=== PATIENT | female | born 1950 | race Caucasian/White ===

== ENCOUNTER 2017-04-10 08:27 | Emergency (ER) | payer MEDICARE ==
[2017-04-10] MEDS ORDERED: HYDROcodone/ACETAMIN 5-325 MG* 1 TAB PO ONE (09:19)
[2017-04-10 10:46] VITALS: BP 156/83
--- NOTE | 2017-04-10 11:06 | RAD ---
Indication: LEFT proximal humerus pain post fall. Comparison: February 16, 2017 DEXA scan. Technique: AP and lateral views LEFT radius and ulna. AP and lateral views LEFT humerus. Report: Transverse fracture at the surgical neck of the humerus with 2 bone widths medial and 1 bone width anterior displacement. The humeral head remains located at the glenoid fossa. No additional fracture of the humerus, radius, or ulna evident. Unremarkable articular alignment at the elbow and wrist. Negative for fat pad displacement at the elbow to indicate joint effusion. Soft tissue swelling most prominent at the axilla. IMPRESSION: 1. Displaced surgical neck fracture of the humerus. Predisposing decreased bone density with February 16, 2017 DEXA scan documenting osteoporosis. 2. Negative for fracture of the radius or ulna.
--- NOTE | 2017-04-10 16:22 | ED ---
Upper Extremity Pain - HPI Summary HPI Summary: Patient presents to the ED with chief complaint of left arm pain after falling on the ice this morning. She endorses 9 out of 10 pain to the left upper arm. She was able to call an ambulance, but has not been able to move about the shoulder or elbow joint. Denies numbness, tingling, color or temperature changes. Neurovascularly intact. Patient is a smoker. Diffuse osteopenia DEXA scan completed in 2017. She takes opioids for chronic back pain but has not taken any prior to arrival. She denies hitting her head or loss of consciousness. Denies any other injuries on this date. Patient is ambulating well. She is right-handed. Last PO intake was last evening. - History of Current Complaint Chief Complaint: EDExtremityUpper Stated Complaint: FALL,LT SHOULDER PAIN Time Seen by Provider: 04/10/17 08:40 Hx Obtained From: Patient Mechanism Of Injury: Blunt Trauma Onset/Duration: Started Hours Ago Timing: Constant Severity Initially: Moderate Severity Currently: Moderate Character: Aching Alleviating Factor(s): Rest, Ice Associated Signs & Symptoms: Positive: Swelling Related History: Dominant Hand Right - Risk Factors Non-Orthopedic Risk Factor: Negative DVT Risk Factors: Negative Septic Arthritis Risk Factor: Negative Compartment Syndrome Risk Factors: Pain - Allergies/Home Medications Allergies/Adverse Reactions: Allergies Allergy/AdvReac Type Severity Reaction Status Date / Time cephalexin [From Keflex] Allergy Diarrhea Verified 04/10/17 09:55 eszopiclone [From Lunesta] Allergy Hallucinati Verified 04/10/17 09:56 ons PMH/Surg Hx/FS Hx/Imm Hx Previously Healthy: Yes Musculoskeletal History: Denies: Hx Osteoporosis - Immunization History Date of Influenza Vaccine: 12/14 Hx Pertussis Vaccination: No Immunizations Up to Date: Unable to Obtain/Confirm Infectious Disease History: No Infectious Disease History: Denies: Traveled Outside the [place] in Last 30 Days - Social History Occupation: Unemployed Lives: Alone Alcohol Use: None Hx Substance Use: No Substance Use Type: Reports: None Hx Tobacco Use: Yes Smoking Status (MU): Light Every Day Tobacco Smoker Review of Systems Constitutional: Negative Negative: Fever, Chills, Fatigue Eyes: Negative Cardiovascular: Negative Genitourinary: Negative Positive: no symptoms reported, see HPI Positive: Arthralgia, Myalgia Skin: Negative Neurological: Negative All Other Systems Reviewed And Are Negative: Yes Physical Exam Triage Information Reviewed: Yes Vital Signs On Initial Exam: Initial Vitals Temp Pulse Resp BP Pulse Ox 98.3 F 66 20 171/97 98 04/10/17 08:31 04/10/17 08:31 04/10/17 08:31 04/10/17 08:31 04/10/17 08:31 Vital Signs Reviewed: Yes Appearance: Positive: Well-Appearing, Well-Nourished Skin: Positive: Warm, Skin Color Reflects Adequate Perfusion Head/Face: Positive: Normal Head/Face Inspection Eyes: Positive: EOMI, ELISEO, Conjunctiva Clear Neck: Positive: Supple, No Lymphadenopathy Respiratory/Lung Sounds: Positive: Clear to Auscultation, Breath Sounds Present Cardiovascular: Positive: RRR, Pulses are Symmetrical in both Upper and Lower Extremities Musculoskeletal: Positive: Pain @ - Left shoulder and upper extremity Neurological: Positive: Speech Normal Psychiatric: Positive: Affect/Mood Appropriate AVPU Assessment: Alert Diagnostics - Vital Signs Vital Signs Temp Pulse Resp BP Pulse Ox 04/10/17 10:44 98.4 F 70 18 156/83 97 04/10/17 08:31 98.3 F 66 20 171/97 98 - Laboratory Lab Statement: Any lab studies that have been ordered have been reviewed, and results considered in the medical decision making process. Course/Dx - Course Course Of Treatment: During the course of treatment, the patient was evaluated for blunt trauma to the left shoulder. X-ray obtained which shows a displaced surgical neck fracture of the humerus. Predisposing decreased bone density from DEXA scan documenting osteoporosis. Negative for fracture of the radius or ulna. Transverse fracture at the surgical neck of the humerus with 2 bone with medial and 1 bone width anterior displacement. The humeral head remains located the glenoid fossa. No additional fracture of the humerus, he is, or ulna evident. Unremarkable articular alignment at the elbow and wrist. For fat pad displacement of the elbow to indicate joint effusion. Soft tissue swelling less prominent at the axilla. She is given 2 hydrocodone as in the ED with relief. Discussed case with Dr. Reis who agrees to surgery on this date. Patient refuses. She is willing to follow up with him in his clinic, this was relayed to Dr. Reis who is okay with this plan. No splint applied, sling applied and patient will follow up with Dr. Reis on Tuesday. - Diagnoses Differential Diagnosis/HQI/PQRI: Positive: Fracture (Closed) Provider Diagnoses: Fracture of surgical neck of humerus Discharge - Discharge Plan Condition: Stable Disposition: HOME Patient Education Materials: Arm Fracture in Adults (ED) Referrals: Gabino Reis MD [Medical Doctor] - Quinn Spencer MD [Primary Care Provider] - Additional Instructions: Follow-up with Dr. Reis on Tuesday Please call tomorrow morning for an appointment Make sure you tell the office that Dr. Reis is aware of you following up on Tuesday and definitely wants to see you on that day Keep the arm in the sling at all times until you follow up You may resume all your at home medications
== END 2017-04-10 10:56 | disposition home or self-care (01) ==
LOC: ED 08:27
DX: S42.212A Unspecified displaced fracture of surgical neck of left humerus, initial encounter for closed fracture (principal); M25.512 Pain in left shoulder; W00.2XXA Other fall from one level to another due to ice and snow, initial encounter; Y92.9 Unspecified place or not applicable; F17.210 Nicotine dependence, cigarettes, uncomplicated
CPT/HCPCS: 99282

== ENCOUNTER 2017-04-14 16:50 | Observation (INO) | payer MEDICARE, OTHER ==
[2017-04-14] MEDS ORDERED: Famotidine IV* 10 MG/ML 2 ML (20 mg) ONE (17:37)
[2017-04-14] MEDS ORDERED: Dexamethasone IV* 4 MG/ML 1 ML (4 MG) ONE (17:37)
[2017-04-14] MEDS ORDERED: Mivacurium Chloride* 20 MG/10 ML VIAL IV ONE (18:51)
[2017-04-14] MEDS ORDERED: Propofol* 10 MG/ML 20 ML BTL IV PUSH ONE (18:51)
[2017-04-14] MEDS ORDERED: Lidocaine 2% PF * 5 ML VIAL ONE (18:51)
[2017-04-14] MEDS ORDERED: Bupivacaine 0.5% SDV PF* 10-30ML VIAL ONE (18:54)
[2017-04-14] MEDS ORDERED: Bupivacaine 0.25% SDV* 30 ML ONE (18:55)
[2017-04-14] MEDS ORDERED: fentaNYL* 50 MCG/ML 5 ML VIAL (250 MCG VIAL) ONE (19:10)
[2017-04-14] MEDS ORDERED: Midazolam* 1 MG/ML 5 ML VIAL (5 MG) ONE (19:10)
[2017-04-14] MEDS ORDERED: Clindamycin 900 MG IVPREMIX(* 900 MG/50 ML SDV IV ONE (19:21)
[2017-04-14] MEDS ORDERED: EPHEDrine (Pressors)* 50 MG/ML VIAL ONE (20:16)
[2017-04-14] MEDS ORDERED: fentaNYL* 50 MCG/ML 2 ML VIAL (100 MCG VIAL) ONE ×3 (21:16→22:16)
[2017-04-14] MEDS ORDERED: Naloxone* 0.4 MG/ML 1 ML VIAL IV PRN (21:27)
[2017-04-14] MEDS ORDERED: HYDROcodone/ACETAMIN 5-325 MG* 1 TAB PO PRN (21:27)
[2017-04-14] MEDS ORDERED: PROCHLORPERAZINE INJ 5 MG/ML 2 ML VIAL IV PRN (21:27)
[2017-04-14] MEDS ORDERED: oxyCODONE/Acetamin 5/325 MG* TAB PO PRN ×2 (21:27→22:15)
[2017-04-14] MEDS ORDERED: Ondansetron INJ* 2 MG/ML VIAL ONE (21:28)
--- NOTE | 2017-04-14 21:53 | RAD ---
INDICATION: Traumatic left humeral fracture COMPARISON: None FINDINGS: 18.1 seconds of fluoroscopy were provided for the orthopedics department. Fluoroscopic spot imaging of the proximal left humerus were obtained for operative control and show open reduction internal fixation of the proximal humeral fracture with placement of cortical plate and screws. The fracture fragments are in near-anatomic position . CPT II Codes: 6045F (fluoro time doc)
[2017-04-14] MEDS: fentaNYL* 50 MCG/ML 2 ML VIAL (100 MCG VIAL) IV PRN ×4 (22:06→22:25)
[2017-04-14] MEDS ORDERED: diPHENhydraMINE PO* 25 MG PO PRN (22:15)
[2017-04-14] MEDS ORDERED: Magnesium Hydroxide LIQ* 30 ML UDC PO PRN (22:15)
[2017-04-14] MEDS ORDERED: Morphine INJ* 2 MG/ML 1 ML CARPUJECT IV PRN (22:15)
[2017-04-14] MEDS ORDERED: Ondansetron INJ* 2 MG/ML VIAL IV PRN (22:15)
[2017-04-14] MEDS ORDERED: oxyCODONE/Acetamin 5/325 MG* TAB ONE (22:49)
[2017-04-15] MEDS ORDERED: ALPRAZolam TAB* 0.5 MG PO SCH ×2 (02:00→09:00)
[2017-04-15] MEDS ORDERED: Levothyroxine TAB* 112 MCG TAB PO SCH (06:00)
[2017-04-15 07:23] VITALS: BP 137/68
[2017-04-15] MEDS: oxyCODONE/Acetamin 5/325 MG* TAB PO PRN ×2 (07:30→11:41)
[2017-04-15] MEDS ORDERED: Aspirin TAB* 325 MG PO SCH (09:00)
[2017-04-15] MEDS ORDERED: Magnesium Hydroxide LIQ* 30 ML UDC PO SCH (09:00)
--- NOTE | 2017-04-17 09:59 | OP ---
DATE OF OPERATION: 04/14/17 - ROOM #341 DATE OF : 52. SURGEON: Gabino Reis MD. [employer] BUSINESS SEGMENT LEADER: STACY Balderas. An assistant clinical nurse manager was needed for the entirety of the procedure to aid in positioning of the arm and retraction. ANESTHESIOLOGIST: Dr. Hernandez. ANESTHESIA: General. PRE-OP DIAGNOSIS: Left displaced comminuted surgical neck proximal humerus fracture. POST-OP DIAGNOSIS: Left displaced comminuted surgical neck proximal humerus fracture. OPERATIVE PROCEDURE: Open reduction and internal fixation left displaced surgical neck proximal humerus fracture. ESTIMATED BLOOD LOSS: 100 mL. COMPLICATIONS: None. INDICATIONS: Narda is a 66-year-old female who has a very displaced surgical neck fracture with complete bayonetting of the surgical neck in the humeral head. I talked about her treatment options including closed reduction and pinning versus open reduction and internal fixation. I had recommended open reduction and internal fixation. We had talked about risks and benefits. She understands these risk of stiffness, chronic pain, and hardware failure requiring additional surgery up to and including arthroplasty. She wishes to proceed. FINDINGS: As expected. There was quite a bit of comminution about the surgical neck. DESCRIPTION OF PROCEDURE: Narda was seen in the preoperative holding area. The correct site, side, and procedure were identified. We came back to the operating room, where the arm was prepped and draped in the usual fashion. She was positioned in the beach chair position. I began by making a longitudinal incision from the coracoid process down to the anterolateral upper arm. Dissection was carried down, the deltopectoral interval was developed. The perforators were cauterized. The cephalic vein was retracted laterally. The subacromial space and subdeltoid recess was bluntly opened and Hohmann retractors were placed. There was a quite bit of fracture hematoma, but this was all irrigated out and suctioned out. I then put traction on the arm. Using the Jo retractor, I was able to get the shaft back underneath the humeral head. I modified the reduction until I had what was felt to be shaft very nicely under the humeral head. There was a significant amount of comminution about the surgical neck and so it was impossible to get an anatomic reduction but I got the shaft very nicely back underneath the humeral head. Long-head of the biceps tendon was identified. I then brought in my Synthes anatomic periarticular proximal humerus plate. The plate was positioned into place and a couple of pins were placed and the plate to bone clamp was applied proximally. The C-arm was brought in. Fluoroscopic imaging confirmed good plate placement and reduction of the fracture. I then placed one cortical screw in the most proximal oblong hole of the plate. It provided excellent plate to bone compression. I then placed all of my locking screws proximally. These were placed subchondrally. The remaining two distal holes were filled with one cortical and then one locking screw as she was quite osteoporotic. The C-arm was brought in and final fluoroscopic imaging confirmed good reduction and we went live on the fluoroscopy and I confirmed that there were no screws penetrating the humeral head. The wound was then copiously irrigated out. Hemostasis was obtained with the Bovie. The deltopectoral fascia was closed with 2-0 Vicryl suture. The subcutaneous tissue was reapproximated with 2-0 Vicryl suture. Skin was closed with richa. The area was infiltrated with copious amount of 0.25% Marcaine. The wound was dressed with Xeroform, 4x4's, ABD and foam tape. The patient was placed in a sling, woken up and taken to recovery room in stable condition. [id number]/[facility] #: [id number] PENNY
--- NOTE | 2017-04-18 13:19 | DS ---
DISCHARGE SUMMARY: DATE OF ADMISSION: 04/14/17 DATE OF DISCHARGE: 04/15/17 PROVIDER: Gabino Reis MD CHIEF COMPLAINT: Left proximal humerus fracture. DISCHARGE DIAGNOSIS: Left proximal humerus fracture. PROCEDURE: Left proximal humerus open reduction internal fixation. CONSULTATIONS: None. BRIEF HISTORY: Ms. Roa is a 66-year-old female who on 04/10/17 fell on the ice, landing on her left arm. She was seen at a time in the emergency room and diagnosed with a displaced left humerus fracture, but chose to go home instead of being admitted to have surgery the following day. She retu rned to the operating room on 04/14/17 and underwent a left proximal humerus open reduction internal fixation with Dr. eRis and was kept overnight for observation due to the late time of her surgery. HOSPITAL COURSE: Ms. Roa was admitted to [facility] on 04/14/17 where she underwent a left proximal humerus open reduction internal fixation. Postoperatively, she stayed on the [facility] surgical unit for observation due to her late surgical time. On postop day 1, she was seen on e floor, but she was doing well enough to return home with similar systems including home nursing ser vice activities of daily living. PHYSICAL EXAMINATION: General: She is well nourished, well developed, in no acute distress. Alert and oriented x3. Vital signs on the day of discharge: Temperature of 98.1, pulse 69, respiration rat e of 16, oxygen saturation 100%, blood pressure 137/68. Examination of the left upper extremity show ed surgical dressing clean, dry and intact. She has significant bruising inferior to dressing. She i s able to move her fingers as well as her wrist and her elbow without significant pain. She has 2+ r adial pulse and sensation is intact to light touch distally. LABORATORY DATA: On the date of discharge, no laboratory data was collected. RADIOGRAPHS: Postoperative radiographs of the left humerus demonstrate proximal humeral fracture wit h placement of cortical plate and screws, fracture fragment for near anatomical position per Dr. Vini Celestin. DISCHARGE MEDICATIONS: She will continue her home medications: 1. Hydrocodone/acetaminophen 5/325 one to two tabs every 6 hours as needed for pain. 2. Methotrexate 2.5 mg weekly. 3. Lisinopril 5 mg every day. 4. Cyclobenzaprine 10 mg twice daily as needed. 5. Levothyroxine 112 mcg orally every morning. 6. Folate supplement. 7. Vitamin D units initially as daily. 8. Sodium diclofenac 1% cream to apply topically 2 times a day as needed. 9. [place]-3 DHA, EPA fish oil 1 cap twice daily. CONDITION ON DISCHARGE: Stable. DISCHARGE INSTRUCTIONS: Ms. Roa is a 66-year-old female postop day 1, status post left proxima l humerus open reduction internal fixation which was uncomplicated. She is orthopedically and medica lly stable for discharge home with services. Her vital signs were stable. She will restart her home medications. She will be nonweightbearing on her left arm and will take Percocet for pain control. She may take Colace up to 3 times a day for constipation. She will follow up with Dr. Reis in 7 to 10 days for incision check and suture removal. She was instructed to go to the emergency room if she should develop chest pain or shortness of breath, and call our office if she developed fever, increa sing pain, or redness. STACY DIOP [id number]/[facility] #: [id number]
== END 2017-04-15 11:42 | disposition home or self-care (01) ==
LOC: OR 16:50 → SSU 22:15
PROVIDERS: ADMIT Orthopaedic Surgery Hand Surgery; ATTEND Orthopaedic Surgery Hand Surgery
PROC: 0PSD04Z Reposition Left Humeral Head with Internal Fixation Device, Open Approach (ICD-10-PCS; principal; 2017-04-14 19:00)
DX: S42.212A Unspecified displaced fracture of surgical neck of left humerus, initial encounter for closed fracture (principal); W00.0XXA Fall on same level due to ice and snow, initial encounter; Y92.9 Unspecified place or not applicable; J44.9 Chronic obstructive pulmonary disease, unspecified; G89.29 Other chronic pain; M05.10 Rheumatoid lung disease with rheumatoid arthritis of unspecified site; Z96.652 Presence of left artificial knee joint; Z98.51 Tubal ligation status; F17.210 Nicotine dependence, cigarettes, uncomplicated
CPT/HCPCS: 76001; 96374; 96375; A9270-GY; C1713; C1776; G0378; J1100; J2250; J2405; J2704; J3010

== ENCOUNTER 2017-07-19 08:41 | Emergency (ER) | payer MEDICARE, OTHER ==
[2017-07-19 10:46] LABS: Hematocrit 47 % (35-47); Hemoglobin 15.9 g/dl (12.0-16.0); Mean Corpuscular HGB Conc 34 g/dl (31-36); Mean Corpuscular Hemoglobin 31 pg (27-31); Mean Corpuscular Volume 92 fL (80-97); Mean Platelet Volume 9.6 um3 (7.4-10.4); Platelet Count 158 10^3/ul (150-450); Red Blood Count 5.07 10^6/ul (4.0-5.4); Red Cell Distribution Width 13 % (10.5-15); White Blood Count 7.5 10^3/ul (3.5-10.8)
--- NOTE | 2017-07-19 10:56 | RAD ---
HISTORY: Right ankle redness and swelling COMPARISONS: None VIEWS: 3, Frontal, lateral, and oblique views of the right ankle FINDINGS: BONE DENSITY: There is diffuse osteopenia. BONES: There is no displaced fracture. There are posterior and plantar calcaneal enthesophytes. There is no appreciable erosion or periosteal reaction. JOINTS: There is no arthropathy. ALIGNMENT: There is no dislocation. SOFT TISSUES: Unremarkable. OTHER FINDINGS: None. IMPRESSION: 1. OSTEOPENIA. 2. NO APPRECIABLE EROSION OR PERIOSTEAL REACTION. PLAIN FILM FINDINGS OF OSTEOMYELITIS ARE RELATIVELY LATE FINDINGS. IF THERE IS PERSISTENT CLINICAL CONCERN FOR OSTEOMYELITIS, RECOMMEND CORRELATION WITH FOLLOWUP IMAGING, THREE-PHASE BONE SCANNING, WHITE BLOOD CELL SCAN, AND/OR MRI OF THE AFFECTED REGION.
[2017-07-19 11:03] LABS: EGFR Non-African American 69.7 (>60)
[2017-07-19 11:31] VITALS: BP 164/103
[2017-07-19 11:41] LABS: ABS Basophils 0 10^3/ul (0-0.2); ABS Eosinophils 0.1 10^3/ul (0-0.6); ABS Lymphocytes 0.9 10^3/ul (1.0-4.8); ABS Monocytes 0.4 10^3/ul (0-0.8); ABS Nucleated RBC 0 10^3/ul; Eosinophil % 1.3 % (0-6); Lymphocyte % 12.2 % (25-47); Nucleated Red Blood Cells % 0.1
--- NOTE | 2017-07-23 06:08 | ED ---
Lower Extremity - HPI Summary HPI Summary: Patient is a 67-year-old female with a history of rheumatoid arthritis presents to the ED with chief complaint of right lateral ankle redness and swelling. Denies any known injury. She was sent by her sod cutter, Dr. Rodriguez. She states the pain, erythema and swelling have been present for approximately one week and has been worsening. Aggravated with ambulation and better with rest. She continues on her methotrexate and has been taking [place] for relief. She has not been taking ibuprofen or Tylenol. She has iced the area intermittently for some relief. Denies any fevers, sweats, chills. Denies any red streaking up the leg. No history of cellulitis or MRSA. There is no bruising noted. Pulses +2 intact bilaterally. - History of Current Complaint Chief Complaint: EDExtremityLower Stated Complaint: RT ANKLE PAIN Time Seen by Provider: 07/19/17 09:05 Hx Obtained From: Patient Mechanism Of Injury: Unknown Onset of Pain: Days Onset/Duration: Weeks Severity Initially: Mild Severity Currently: Mild Pain Intensity: 0 Pain Scale Used: 0-10 Numeric Timing: Constant Location: Is Discrete @ - R lateral and posterior ankle tenderness Associated Signs And Symptoms: Positive: Swelling, Redness Aggravating Factor(s): Standing, Ambulation Alleviating Factor(s): Rest Able to Bear Weight: Yes - Risk Factors Gout Risk Factors: Age Over 40 DVT Risk Factors: Negative Septic Arthritis Risk Factor: Negative - Allergies/Home Medications Allergies/Adverse Reactions: Allergies Allergy/AdvReac Type Severity Reaction Status Date / Time cephalexin [From Keflex] Allergy Severe Diarrhea Verified 04/14/17 17:21 eszopiclone [From Lunesta] Allergy Intermediate Hallucinati Verified 04/14/17 17 :21 ons Home Medications: Home Medications ALPRAZolam TAB* [Xanax TAB*] 0.5 mg PO DAILY PRN MDD 1.5mg 07/19/17 [History Confirmed 07/19/17] ALPRAZolam TAB* [Xanax TAB*] 1 mg PO BEDTIME PRN MDD 1.5mg 07/19/17 [History Confirmed 07/19/17] HYDROcodone/ACETAMIN 5-325 MG* [[place] 5-325 TAB*] 1 tab PO Q8H PRN 07/19/17 [ History Confirmed 07/19/17] Ibuprofen TAB* [Advil TAB*] 200 mg PO QAM PRN 07/19/17 [History Confirmed ] Cgmvs-0-Cgkn Ethyl Esters (NF) [Lovaza (NF)] 1 cap PO BID 07/19/17 [History Confirmed 07/19/17] PMH/Surg Hx/FS Hx/Imm Hx Previously Healthy: Yes Endocrine/Hematology History: Reports: Hx Thyroid Disease Cardiovascular History: Reports: Hx Hypertension History: Reports: Hx Kidney Infection, Other Problems/Disorders Musculoskeletal History: Reports: Hx Arthritis - RA, osteopenia, Hx Rheumatoid Arthritis Denies: Hx Osteoporosis Sensory History: Reports: Hx Cataracts - beginnings, Hx Contacts or Glasses - reading Denies: Hx Hearing Aid Opthamlomology History: Reports: Hx Cataracts - beginnings, Hx Contacts or Glasses - reading Psychiatric History: Reports: Hx Anxiety, Hx Depression - Cancer History Hx Chemotherapy: No - Surgical History Surgery Procedure, Year, and Place: left knee replacement - 5 years ago. tubal ligation 1978. colonoscopy Hx Anesthesia Reactions: No - Immunization History Date of Influenza Vaccine: 12/14 Hx Pertussis Vaccination: No Immunizations Up to Date: Unable to Obtain/Confirm Infectious Disease History: No Infectious Disease History: Reports: Hx Hepatitis - inactive hep C Denies: Traveled Outside the [place] in Last 30 Days - Social History Occupation: Unemployed Lives: Alone Alcohol Use: Occasionally Hx Substance Use: No Substance Use Type: Reports: None Hx Tobacco Use: Yes Smoking Status (MU): Light Every Day Tobacco Smoker Amount Used/How Often: smoking for approx 40 years from 2ppds down to 8-10 cigarettes a day Review of Systems Constitutional: Negative Negative: Fever, Chills, Fatigue Cardiovascular: Negative Respiratory: Negative Genitourinary: Negative Positive: no symptoms reported, see HPI Positive: Other - erythema and warmth to the R lateral ankle without streaking measuring 2cm by 3cm Neurological: Negative Psychological: Normal All Other Systems Reviewed And Are Negative: Yes Physical Exam Triage Information Reviewed: Yes Vital Signs On Initial Exam: Initial Vitals Temp Pulse Resp BP Pulse Ox 98.1 F 60 18 133/74 96 07/19/17 08:44 07/19/17 08:44 07/19/17 08:44 07/19/17 08:44 07/19/17 08:44 Vital Signs Reviewed: Yes Appearance: Positive: Well-Appearing, Well-Nourished Skin: Positive: Warm, Skin Color Reflects Adequate Perfusion, Other - erythema and warmth to the lateral ankle Head/Face: Positive: Normal Head/Face Inspection Eyes: Positive: EOMI, ELISEO Neck: Positive: No Lymphadenopathy Respiratory/Lung Sounds: Positive: Clear to Auscultation, Breath Sounds Present Cardiovascular: Positive: RRR, Pulses are Symmetrical in both Upper and Lower Extremities Musculoskeletal: Positive: Strength/ROM Intact Neurological: Positive: Sensory/Motor Intact, Alert, Oriented to Person Place, Time, Speech Normal Psychiatric: Positive: Affect/Mood Appropriate AVPU Assessment: Alert Diagnostics - Vital Signs Vital Signs Temp Pulse Resp BP Pulse Ox 07/19/17 11:30 98.5 F 82 18 164/103 99 07/19/17 08:44 98.1 F 60 18 133/74 96 - Laboratory Lab Results: Lab Results 07/19/17 07/19/17 Range/Units 10:31 10:34 WBC 7.5 (3.5-10.8) 10^3/ul RBC 5.07 (4.0-5.4) 10^6/ul Hgb 15.9 (12.0-16.0) g/dl Hct 47 (35-47) % MCV 92 (80-97) fL MCH 31 (27-31) pg MCHC 34 (31-36) g/dl RDW 13 (10.5-15) % Plt Count 158 (150-450) 10^3/ul MPV 9.6 (7.4-10.4) um3 Neut % (Auto) 80.2 (38-83) % Lymph % (Auto) 12.2 L (25-47) % Geary % (Auto) 5.6 (0-7) % Eos % (Auto) 1.3 (0-6) % Baso % (Auto) 0.7 (0-2) % Absolute Neuts (auto) 6.0 (1.5-7.7) 10^3/ul Absolute Lymphs (auto) 0.9 L (1.0-4.8) 10^3/ul Absolute Monos (auto) 0.4 (0-0.8) 10^3/ul Absolute Eos (auto) 0.1 (0-0.6) 10^3/ul Absolute Basos (auto) 0 (0-0.2) 10^3/ul Absolute Nucleated RBC 0 10^3/ul Nucleated RBC % 0.1 ESR 10 (0-40) mm/Hr Sodium 137 L (139-145) mmol/L Potassium 4.0 (3.5-5.0) mmol/L Chloride 101 (101-111) mmol/L Carbon Dioxide 30 (22-32) mmol/L Anion Gap 6 (2-11) mmol/L BUN 16 (6-24) mg/dL Creatinine 0.82 (0.51-0.95) mg/dL Est GFR ( Amer) 89.7 (>60) Est GFR (Non-Af Amer) 69.7 (>60) BUN/Creatinine Ratio 19.5 (8-20) Glucose 88 (70-100) mg/dL Calcium 9.6 (8.6-10.3) mg/dL Total Bilirubin 0.50 (0.2-1.0) mg/dL AST 15 (13-39) U/L ALT 10 (7-52) U/L Alkaline Phosphatase 68 (34-104) U/L C-React Prot High Sens 2.00 mg/L Total Protein 6.9 (6.4-8.9) g/dL Albumin 4.1 (3.2-5.2) g/dL Globulin 2.8 (2-4) g/dL Albumin/Globulin Ratio 1.5 (1-3) Result Diagrams: 07/19/17 10:34 07/19/17 10:31 Lab Statement: Any lab studies that have been ordered have been reviewed, and results considered in the medical decision making process. Lower Extremity Course/Dx - Course Course Of Treatment: On arrival, patient is evaluated for right lateral ankle redness and swelling. She states the pain radiates into her calcaneus as well. Labs obtained to assess for any source of infection. Labs are unremarkable. X-ray obtained which shows:NO APPRECIABLE EROSION OR PERIOSTEAL REACTION. PLAIN FILM FINDINGS OF OSTEOMYELITIS A RELATIVELY LATE FINDINGS. IF THERE IS PERSISTENT CLINICAL CONCERN FOR OSTEOMYELITIS, RECOMMEND CORRELATION WITH FOLLOW -UP IMAGING. THREE-PHASE BONE SCANNING, WHITE BLOOD CELL SCAN, AND/OR MRI OF THE AFFECTED REGION. I have discussed with the patient this is possibly a flareup of her rheumatoid arthritis. The area does not appear to be cellulitic , but rather inflamed. To cover for any potential cellulitis or underlying infection, I will place the patient on Bactrim due to cephalexin allergy. She will follow-up with Dr. Rodriguez for further evaluation and imaging as needed. I have also encouraged celebrex and ice and elevation. Marcos wrapped prior to discharge. Discussed cellulitis with the patient, so have given her information on such, however do not believe this is a cellulitis at this time. - Diagnoses Differential Diagnosis/HQI/PQRI: Positive: Bursitis, Cellulitis, Infection, Osteomyelitis, Strain, Tendonitis Provider Diagnoses: Rheumatoid arthritis flare Discharge - Sign-Out/Discharge Documenting (check all that apply): Discharge/Admit/Transfer - Discharge Plan Condition: Stable Disposition: HOME Prescriptions: Sulfamethox/Trimethoprim DS* [Bactrim DS 800/160 TAB*] 1 tab PO BID #14 tab Patient Education Materials: Cellulitis (ED) Referrals: Quinn Spencer MD [Primary Care Provider] - Additional Instructions: Please restart your Celebrex Bactrim twice daily 7 days Follow-up with Dr. Rodriguez If he develop any fevers, sweats, chills, worsening redness or warmth or swelling to the area, return to the ED immediately - Billing Disposition and Condition Condition: STABLE Disposition: HOME
== END 2017-07-19 11:30 | disposition home or self-care (01) ==
LOC: ED 08:41
DX: M06.9 Rheumatoid arthritis, unspecified (principal); M85.871 Other specified disorders of bone density and structure, right ankle and foot; F17.200 Nicotine dependence, unspecified, uncomplicated; Z88.3 Allergy status to other anti-infective agents; Z88.8 Allergy status to other drugs, medicaments and biological substances
CPT/HCPCS: 36415; 80053; 85025; 85652; 86141; 99282

== ENCOUNTER 2017-11-24 07:49 | Emergency (ER) | payer MEDICARE, OTHER ==
--- NOTE | 2017-11-24 08:16 | ED ---
Lower Extremity - HPI Summary HPI Summary: A 67 y/o F with PMHx: RA presents to ED with c/o atraumatic L ankle pain onset 11/15/17. Associated sx: L ankle edema. Aggravating factors: worsens throughout the day. She's been using BenGay and heating pads to no relief. Pt saw Dr. Spencer on 11/15 and was at baseline. She takes Celebrex, hydrocodone, IBP. PMHx: RLE cellutlis. - History of Current Complaint Chief Complaint: EDExtremityLower Stated Complaint: LT SIDE FOOT/ANKLE PAIN Time Seen by Provider: 11/24/17 08:08 Hx Obtained From: Patient Onset/Duration: Still Present Severity Currently: Severe Pain Intensity: 10 Pain Scale Used: 0-10 Numeric Timing: Constant Location: Is Discrete @ - L ankle Character Of Pain: Aching Associated Signs And Symptoms: Positive: Swelling - L ankle Alleviating Factor(s): Nothing - Allergies/Home Medications Allergies/Adverse Reactions: Allergies Allergy/AdvReac Type Severity Reaction Status Date / Time cephalexin [From Keflex] Allergy Severe Diarrhea Verified 11/24/17 08:04 [email or web address] [From Lunesta] Allergy Intermediate Hallucinati Verified 11/24/17 08 :04 ons Home Medications: Home Medications Flexeril 10 MG TAB* 10 mg PO SEE INSTRUCTIONS PRN 11/24/17 [History Confirmed ] celeCOXIB CAP* [CeleBREX CAP*] 200 mg PO DAILY 11/24/17 [History Confirmed 11/24] PMH/Surg Hx/FS Hx/Imm Hx Previously Healthy: No Endocrine/Hematology History: Reports: Hx Thyroid Disease Cardiovascular History: Reports: Hx Hypertension History: Reports: Hx Kidney Infection, Other Problems/Disorders Musculoskeletal History: Reports: Hx Arthritis - RA, osteopenia, Hx Rheumatoid Arthritis Denies: Hx Osteoporosis Sensory History: Reports: Hx Cataracts - beginnings, Hx Contacts or Glasses - reading Denies: Hx Hearing Aid Opthamlomology History: Reports: Hx Cataracts - beginnings, Hx Contacts or Glasses - reading Psychiatric History: Reports: Hx Anxiety, Hx Depression - Cancer History Hx Chemotherapy: No - Surgical History Surgery Procedure, Year, and Place: left knee replacement - 5 years ago. tubal ligation 1978. colonoscopy Hx Anesthesia Reactions: No - Immunization History Date of Influenza Vaccine: 12/14 Infectious Disease History: No Infectious Disease History: Reports: Hx Hepatitis - inactive hep C Denies: Traveled Outside the [place] in Last 30 Days - Family History Known Family History: Positive: Other - neg: breast CA - Social History Occupation: Unemployed - OTHER Lives: With Family Alcohol Use: Rare Hx Substance Use: No Substance Use Type: Reports: None Hx Tobacco Use: Yes Smoking Status (MU): Light Every Day Tobacco Smoker Amount Used/How Often: smoking for approx 40 years from 2ppds down to 8-10 cigarettes a day Review of Systems Negative: Fever Positive: Edema - L ankle, Other - pos: L ankle All Other Systems Reviewed And Are Negative: Yes Physical Exam - Summary Physical Exam Summary: Appearance: The patient is well-nourished in no acute distress and in no acute pain. Skin: The skin is warm and dry and skin color reflects adequate perfusion. HEENT: The head is normocephalic and atraumatic. The pupils are equal and reactive. The conjunctivae are clear and without drainage. Nares are patent and without drainage. Mouth reveals moist mucous membranes and the throat is without erythema and exudate. The external ears are intact. The ear canals are patent and without drainage. The tympanic membranes are intact. Neck: the neck is supple with full range of motion and non-tender. There are no carotid bruits. There is no neck vein distension. Respiratory: Chest is non-tender. Lungs are clear to auscultation and breath sounds are symmetrical and equal. Cardiovascular: Heart is regular rate and rhythm. There is no murmur or rub auscultated. There is no peripheral edema and pulses are symmetrical and equal. Abdomen: The abdomen is soft and non-tender. There are normal bowel sounds heard in all four quadrants and there is no organomegaly palpated. Musculoskeletal: There is no back tenderness noted. Extremities are non-tender with full range of motion. There is no peripheral edema or calf tenderness elicited. Could not feel posterior tibial or dorsal pedal pulse on LLE, both are good on RLE. Capillary refill is less than 2 sec. Neurological: Patient is alert and oriented to person, place and time. The patient has symmetrical motor strength in all four extremities. Cranial nerves are grossly intact. Deep tendon reflexes are symmetrical and equal in all four extremities. Psychiatric: The patient has an appropriate affect and does not exhibit any anxiety or depression. Triage Information Reviewed: Yes Vital Signs On Initial Exam: Initial Vitals Temp Pulse Resp BP Pulse Ox 98.6 F 88 18 154/99 97 11/24/17 07:54 11/24/17 07:54 11/24/17 07:54 11/24/17 07:54 11/24/17 07:54 Vital Signs Reviewed: Yes Diagnostics - Vital Signs Vital Signs Temp Pulse Resp BP Pulse Ox 11/24/17 07:54 98.6 F 88 18 154/99 97 - Laboratory Lab Statement: Any lab studies that have been ordered have been reviewed, and results considered in the medical decision making process. - Ultrasound No standard instances Ultrasound Interpretation: Positive (See Comments) - Extremity Arterial Study, IMPRESSION: #. Lower normal RIGHT and abnormal claudication range LEFT ankle brachial indices. ED provider has reviewed this report. Ultrasound Interpretation Completed By: Radiologist Re-Evaluation - Re-Evaluation 1 Re-Evaluation Time: 10:26 Change: Improved Comment: Discussed plan for dispo with pt and discussed smoking cessation. Lower Extremity Course/Dx - Course Course Of Treatment: Ms. Roa presents to the emergency department with a couple week history of left ankle pain. It seems to get worse during the course of the day she cannot specifically state that using her leg makes it worse. She also states her ankle swells during the course the day and that it is swollen now. I cannot appreciate any swelling. Nor can I appreciate any pulses in her left foot although she has a good capillary refill. She does have good pulses in her right foot. Doppler ultrasounds reveal significant atherosclerotic illness in both extremities but worse in the left. I think her pain is an ischemic pain. I recommended she start an aspirin a day, she may need additional medication and I think she needs to follow up closely with her PCP. - Diagnoses Provider Diagnoses: Claudication Discharge - Sign-Out/Discharge Documenting (check all that apply): Patient Departure - DC - Discharge Plan Condition: Stable Disposition: HOME Patient Education Materials: How to Stop Smoking (ED) Referrals: Quinn Spencer MD [Primary Care Provider] - 2 Days Additional Instructions: Please return to the ED if you experience new or worsening symptoms. Follow up with your primary care provider in 2-3 days. Take baby aspirin daily as discussed. - Billing Disposition and Condition Condition: STABLE Disposition: Home - Attestation Statements Document Initiated by Scribe: Yes Documenting Scribe: Glenn Cowart Provider For Whom Scribe is Documenting (Include Credential): Dr. Josiah Augustin MD Scribe Attestation: I, Glenn Cowart, scribed for Dr. Josiah Augustin MD on 11/24/17 at 1151. Scribe Documentation Reviewed: Yes Provider Attestation: The documentation as recorded by the sherlyibnoemy, Glenn Cowart accurately reflects the service I personally performed and the decisions made by me, Dr. Josiah Augustin MD
--- OUTSIDE RECORDS SUMMARY | 2017-11-24 08:20 | XMS REPORT ---
:1950 External Reference #:[id number] Author Organization [employer] Address [address] [place] [address] [place] [address] Phone [phone] Care Team Providers Name Role Phone Quinn Spencer MD Primary Care Physician Unavailable Payers Type Date Identification Numbers Payment Provider Subscriber Medicare Primary Policy Number: [id number] Medicare Narda Lazo PayID: [id number] [facility] [address] [place] [address] Commercial Effective: 2016 Policy Number: [facility] Narda Lazo [id number] Expires: 2018 Group Number: [id number] PayID: [id number] [address] Problems Date Description Provider Status Onset: 11/29/2016 Rheumatoid lung disease Quinn Spencer M.D. Active Onset: 11/29/2016 Anxiety state Quinn Spencer M.D. Active Onset: 11/29/2016 Chronic pain Quinn Spencer M.D. Active Onset: 11/29/2016 Chronic obstructive lung disease Quinn Spencer M.D. Active Onset: 04/12/2017 Closed fracture of upper end of Gabino Reis MD Active humerus Onset: 08/09/2017 Hypothyroidism Quinn Spencer M.D. Active Onset: 08/09/2017 Essential hypertension Quinn Spencer M.D. Active Onset: 08/09/2017 Cervical smear - inadequate specimen Quinn Spencer M.D. Active Family History Date Family Member(s) Problem(s) Comments General Arthritis Social History Type Date Description Comments Lives With Alone Occupation Retired ETOH Use Denies alcohol use Smoking Light tobacco smoker (10 or fewer cigarettes/day) Recreational Drug Use Denies Drug Use Exercise Type/Frequency Exercises sporadically Allergies, Adverse Reactions, Alerts Date Description Reaction Status Severity Comments 11/29/2016 Keflex active 11/29/2016 Olanzapine active 11/29/2016 Zetia active Medications Medication Date Status Form Strength Qnty SIG Indications Ordering Provider Sulfamethoxazo Active Tablets 800-160mg 14tabs by mouth Brea rizo/Trimethopri 018 twice a D. linda Shaw DS day M.D.,FACP Aspercreme Active Patches 4% 30units apply Aubrey Lidocaine Max 018 once Michael, Strength daily as M.D. needed for pain in the feet Synthroid Active Tablets 112mcg 90tabs Take One Quinn 017 Tablet [place], Once M.D. Daily Hydrocodone-Ac Active Tablets 10-325mg 90tabs 1 tab by G89.29 Aubrey etaminophen 017 mouth Michael, every 8 M.D. hours as needed, pain do not fill before 06/05 M05.79 Calcium 600 + D 11/29/2016 Active Tablets [id number] 1 by mouth Quinn twice a day Malachi Spencer Celecoxib 11/29/2016 Active Capsules 200mg 9 1 by mouth Quinn 0 every day caleb Spencer M.D. a p s Genteal 11/29/2016 Active Gel 0.25-0.3% [place] Malachi Spencer Lisinopril 11/29/2016 Active Tablets 5mg 9 1 by mouth Quinn 0 every day ronny Spencer M.D. a b s Nitroglycerin 11/29/2016 Active Tablets 0.4mg 2 1 sl q5mins x3 Quinn Sub 5 as needed for ronny Spencer chest pain Linda.Fredo a b s Pennsaid 11/29/2016 Active Solution 2% 2 apply 4 drops [place] 2 twice daily to [place], 4 the finger for M.D. g pain m Polyethylene 11/29/2016 Active Powder 5 mix 17gm with [place] Glycol 3350 0 8 ounces of [place], 0 fluids once M.D. g daily m Proctozone-HC 11/29/2016 Active Cream 2.5% 3 topical for [place] 0 hemorrhoids [place], g twice a day as M.D. m needed Bdtgb-4-Gxmd 11/29/2016 Active Capsules 1gm 6 Take One Quinn Ethyl Esters 0 Capsule By Tj, c Mouth Twice A M.D. a Day p s Methotrexate 11/29/2016 Active Tablets 2.5mg 2 Take 2 Tablets Aubrey 4 By Mouth Every Michael, Week M.D. a b s Folic Acid 11/29/2016 Active Tablets 1mg 9 Take One [place] 0 Tablet Once Tj, t Daily M.D. a b s Alprazolam Active Tablets 1mg 4 take 1/2 Quinn 5 tablet by Tj t mouth in the M.D. a morning and b one tablet at s bedtime as needed Cyclobenzaprine Active Tablets 10mg 3 1 tablet by Aubrey HCL 0 mouth at [facility], bedtime as M.D. a needed, muscle b spasms s Ciprofloxacin 08/11/2017 Hx Tablets 500mg 1 twice a day [place] HCL - 4 [place], 08/18/2017 t M.D. a b s Lidoderm 05/30/2017 Hx Patches 5% 3 1 apply to Aubrey - 0 affected area [facility], 06/14/2017 u 12 hours on, M.D. n 12 hours off i t s Oxycodone-Acetam 04/18/2017 Hx Tablets 5-325mg 1 1 tab by mouth Ruben Lloyd inophen - 5 every 8 hours 8 MD Chato 06/03/2017 t for 9 a postoperative . b pain 2 s 9 Ciprofloxacin 01/28/2017 Hx Tablets 250mg 1 take one Aubrey HCL - 4 capsule/tablet [facility], 02/25/2017 t by mouth twice M.D. a daily b s Ipratropium 11/29/2016 Hx Solution 0.5-2.5(3)mg/3M 1 vial in [place] Murray/Albutero - L [facility] Sulfate 08/05/2017 three times a M.D. day as needed for asthma Levothyroxine 11/29/2016 Hx Tablets 112mcg 9 1 by mouth Quinn Sodium - 0 every day [facility] 01/11/2017 t M.D. a b s Lidoderm 11/29/2016 Hx Patches 5% 3 1 apply to [place] - 0 affected area [place], 02/24/2017 u 12 hours on, M.D. n 12 hours off i t s Metaxalone 11/29/2016 Hx Tablets 800mg 3 take 1 tablet [place] - 0 3 times a day [place], 08/09/2017 t as needed (not M.D. a taking) b s Ventolin HFA 11/29/2016 Hx Aerosol 108(90Base) 1 2 puffs by Quinn - mcg/Act u mouth four [place], 02/24/2017 n times a day as M.D. i needed t s Hydrocodone-Acet 11/29/2016 Hx Tablets 5-325mg 4 1 tab every 8h M [place] aminophen - 5 as needed 0 ika, 12/17/2016 t 5 M.D. a . b 1 s 0 Hydrocodone-Acet Hx Tablets 10-325mg Take One Unknown aminophen - Tablet By 11/29/2016 Mouth Three Times A Day as Needed For Pain Maximum Alendronate Hx Tablets 70mg 1 tablet once Unknown Sodium - weekly. take 02/25/2017 on empty stomach with 8 oz water. do not eat or lie down for 30 min after taking (not taking now) Levothyroxine Hx Tablets 112mcg 1 by mouth Unknown Sodium - every day 02/24/2017 Immunizations CPT Code Status Date Vaccine Reaction Lot # [id number] Given 02/25/2017 Pneumococcal Conjugate no immediate reaction [id number] Vaccine 13 Valent For noted Intramuscular Use 32926 Given 11/29/2016 Influenza Virus Vaccine, no immediate reaction, [id number] Quadrivalent, Split, pt tolerated well Preservative Free Vital Signs Date Vital Result Comment 11/07/2017 Height 68.25 inches 5'8.25" Weight 156.00 lb Heart Rate 65 /min BP Systolic Sitting 100 mmHg BP Diastolic Sitting 63 mmHg Respiratory Rate 14 /min Pain Level 4 BMI (Body Mass Index) 23.5 kg/m2 08/09/2017 Height 68.25 inches 5'8.25" Weight 153.00 lb Heart Rate 64 /min BP Systolic 110 mmHg BP Diastolic 70 mmHg O2 % BldC Oximetry 97 % BMI (Body Mass Index) 23.1 kg/m2 08/05/2017 Height 68.25 inches 5'8.25" Weight 153.12 lb Heart Rate 64 /min BP Systolic Sitting 120 mmHg BP Diastolic Sitting 80 mmHg Respiratory Rate 16 /min Pain Level 3 BMI (Body Mass Index) 23.1 kg/m2 05/26/2017 Weight 149.50 lb Heart Rate 72 /min BP Systolic Sitting 100 mmHg BP Diastolic Sitting 58 mmHg Respiratory Rate 14 /min Body Temperature 98.7 F Pain Level 5 05/20/2017 Heart Rate 69 /min BP Systolic 138 mmHg BP Diastolic 88 mmHg Respiratory Rate 16 /min Body Temperature 98.6 F Pain Level 4 05/03/2017 Weight 149.00 lb Heart Rate 64 /min BP Systolic 143 mmHg BP Diastolic 83 mmHg Body Temperature 98.0 F O2 % BldC Oximetry 98 % 04/27/2017 Height 68.25 inches 5'8.25" Weight 150.00 lb Heart Rate 78 /min BP Systolic Sitting 158 mmHg Ra reg cuff BP Diastolic Sitting 90 mmHg Ra reg cuff Body Temperature 98.5 F Pain Level 5 BMI (Body Mass Index) 22.6 kg/m2 04/12/2017 Height 68.25 inches 5'8.25" Weight 142.00 lb Heart Rate 67 /min BP Systolic 129 mmHg BP Diastolic 72 mmHg Body Temperature 98.2 F BMI (Body Mass Index) 21.4 kg/m2 02/25/2017 Height 68.25 inches 5'8.25" Heart Rate 72 /min BP Systolic Sitting 150 mmHg BP Diastolic Sitting 64 mmHg Respiratory Rate 14 /min Pain Level 5 02/24/2017 Weight 145.25 lb Heart Rate 67 /min BP Systolic Sitting 142 mmHg BP Diastolic Sitting 78 mmHg Body Temperature 98.0 F O2 % BldC Oximetry 97 % 01/26/2017 Height 68.25 inches 5'8.25" Weight 145.12 lb Heart Rate 60 /min BP Systolic Sitting 160 mmHg BP Diastolic Sitting 108 mmHg Respiratory Rate 14 /min Pain Level 8 BMI (Body Mass Index) 21.9 kg/m2 01/06/2017 Height 68.25 inches 5'8.25" Weight 145.12 lb Heart Rate 75 /min BP Systolic 164 mmHg BP Diastolic 92 mmHg Body Temperature 98.3 F O2 % BldC Oximetry 96 % BMI (Body Mass Index) 21.9 kg/m2 12/17/2016 Height 68.25 inches 5'8.25" Weight 144.12 lb Heart Rate 98 /min BP Systolic 146 mmHg BP Diastolic 88 mmHg Body Temperature 97.9 F O2 % BldC Oximetry 96 % BMI (Body Mass Index) 21.8 kg/m2 11/29/2016 Height 68.25 inches 5'8.25" Weight 142.50 lb Heart Rate 63 /min BP Systolic 118 mmHg BP Diastolic 66 mmHg Body Temperature 98.0 F O2 % BldC Oximetry 97 % BMI (Body Mass Index) 21.5 kg/m2 Results Test Date Test Result H/L Range Note Laboratory test 11/04/2017 Hepatitis C Rna Undetected IU/mL Undetected 1 finding Quant Laboratory test 11/03/2017 Erythrocyte Sed 10 mm/Hr 0-40 2 finding Rate C Reactive Protein 1.96 mg/L <8.01 3 CBC Auto Diff 11/03/2017 White Blood Count 6.1 10^3/uL 3.5-10.8 Red Blood Count 4.89 10^6/uL 4.00-5.40 Hemoglobin 15.2 g/dL 12.0-16.0 Hematocrit 46 % 35-47 Mean Corpuscular Volume 93 fL 80-97 Mean Corpuscular Hemoglobin 31 pg 27-31 Mean Corpuscular HGB Conc 33 g/dL 31-36 Red Cell Distribution Width 14 % 10.5-15 Platelet Count 136 10^3/uL Low 150-450 Mean Platelet Volume 9.6 um3 7.4-10.4 Abs Neutrophils 4.6 10^3/uL 1.5-7.7 Abs Lymphocytes 0.9 10^3/uL Low 1.0-4.8 Abs Monocytes 0.4 10^3/uL 0-0.8 Abs Eosinophils 0.2 10^3/uL 0-0.6 Abs Basophils 0 10^3/uL 0-0.2 Abs Nucleated RBC 0 10^3/uL Granulocyte % 75.0 % 38-83 Lymphocyte % 15.2 % Low 25-47 Monocyte % 6.8 % 0-7 Eosinophil % 2.5 % 0-6 Basophil % 0.5 % 0-2 Nucleated Red Blood Cells % 0 Comp Metabolic Panel 11/03/2017 Sodium 139 mmol/L 135-145 Potassium 4.3 mmol/L 3.5-5.0 Chloride 104 mmol/L 101-111 Co2 Carbon Dioxide 29 mmol/L 22-32 Anion Gap 6 mmol/L 2-11 Glucose 76 mg/dL 70-100 Blood Urea Nitrogen 17 mg/dL 6-24 Creatinine 0.78 mg/dL 0.51-0.95 BUN/Creatinine Ratio 21.8 High 8-20 Calcium 9.3 mg/dL 8.6-10.3 Total Protein 6.2 g/dL Low 6.4-8.9 Albumin 4.0 g/dL 3.2-5.2 Globulin 2.2 g/dL 2-4 Albumin/Globulin Ratio 1.8 1-3 Total Bilirubin 0.60 mg/dL 0.2-1.0 Alkaline Phosphatase 59 U/L 34-104 Alt 15 U/L 7-52 Ast 15 U/L 13-39 Egfr Non- 73.9 >60 Egfr 89.4 >60 4 Lipid Profile (Trig/Chol/HDL) 11/03/2017 Triglycerides 111 mg/dL 5 Cholesterol 237 mg/dL 6 HDL Cholesterol 59.8 mg/dL 7 LDL Cholesterol 155 mg/dL 8 Laboratory test 11/03/2017 Hepatitis C High Reactive Nonreactive 9 finding Antibody Urine Culture And 10/08/2017 Urine Culture SEE RESULT 10 Sensitivities BELOW Urine Culture And 08/09/2017 Urine Culture SEE RESULT 11, 12 Sensitivities BELOW Ua Routine 08/09/2017 Ua Specific 1.015 [place] Ua PH 7 Ua Color YELLOW Ua Appera CLOUDY Ua WBC + Ua Protein TRACE Ua Glucose NORM Ua Ketones NEG Ua Bilirubin NEG Ua Urobilinogen NORM Ua Nitrite NEG Ua Occult Blood 250 Comp Metabolic Panel 07/19/2017 Sodium 137 mmol/L Low 139-145 Potassium 4.0 mmol/L 3.5-5.0 Chloride 101 mmol/L 101-111 Co2 Carbon Dioxide 30 mmol/L 22-32 Anion Gap 6 mmol/L 2-11 Glucose 88 mg/dL 70-100 Blood Urea Nitrogen 16 mg/dL 6-24 Creatinine 0.82 mg/dL 0.51-0.95 BUN/Creatinine Ratio 19.5 8-20 Calcium 9.6 mg/dL 8.6-10.3 Total Protein 6.9 g/dL 6.4-8.9 Albumin 4.1 g/dL 3.2-5.2 Globulin 2.8 g/dL 2-4 Albumin/Globulin Ratio 1.5 1-3 Total Bilirubin 0.50 mg/dL 0.2-1.0 Alkaline Phosphatase 68 U/L 34-104 Alt 10 U/L 7-52 Ast 15 U/L 13-39 Egfr Non- 69.7 >60 Egfr 89.7 >60 13 Laboratory test finding 07/19/2017 CRP High Sensitivity 2.00 mg/L 14 CBC Auto Diff 07/19/2017 White Blood Count 7.5 10^3/uL 3.5-10.8 Red Blood Count 5.07 10^6/uL 4.0-5.4 Hemoglobin 15.9 g/dL 12.0-16.0 Hematocrit 47 % 35-47 Mean Corpuscular Volume 92 fL 80-97 Mean Corpuscular Hemoglobin 31 pg 27-31 Mean Corpuscular HGB Conc 34 g/dL 31-36 Red Cell Distribution Width 13 % 10.5-15 Platelet Count 158 10^3/uL 150-450 Mean Platelet Volume 9.6 um3 7.4-10.4 Abs Neutrophils 6.0 10^3/uL 1.5-7.7 Abs Lymphocytes 0.9 10^3/uL Low 1.0-4.8 Abs Monocytes 0.4 10^3/uL 0-0.8 Abs Eosinophils 0.1 10^3/uL 0-0.6 Abs Basophils 0 10^3/uL 0-0.2 Abs Nucleated RBC 0 10^3/uL Granulocyte % 80.2 % 38-83 Lymphocyte % 12.2 % Low 25-47 Monocyte % 5.6 % 0-7 Eosinophil % 1.3 % 0-6 Basophil % 0.7 % 0-2 Nucleated Red Blood Cells % 0.1 Laboratory test finding 07/19/2017 Erythrocyte Sed Rate 10 mm/Hr 0-40 Laboratory test finding 06/02/2017 Vitamin D, 1,25 Dihydroxy 35 pg/mL 18- 78 15 Comp Metabolic Panel 06/02/2017 Sodium 139 mmol/L 139-145 Potassium 4.2 mmol/L 3.5-5.0 Chloride 103 mmol/L 101-111 Co2 Carbon Dioxide 30 mmol/L 22-32 Anion Gap 6 mmol/L 2-11 Glucose 77 mg/dL 70-100 Blood Urea Nitrogen 19 mg/dL 6-24 Creatinine 0.83 mg/dL 0.51-0.95 BUN/Creatinine Ratio 22.9 High 8-20 Calcium 9.2 mg/dL 8.6-10.3 Total Protein 6.2 g/dL Low 6.4-8.9 Albumin 4.1 g/dL 3.2-5.2 Globulin 2.1 g/dL 2-4 Albumin/Globulin Ratio 2.0 1-3 Total Bilirubin 0.40 mg/dL 0.2-1.0 Alkaline Phosphatase 62 U/L 34-104 Alt 14 U/L 7-52 Ast 15 U/L 13-39 Egfr Non- 69.0 >60 Egfr 88.7 >60 16 CBC Auto Diff 06/02/2017 White Blood Count 5.3 10^3/uL 3.5-10.8 Red Blood Count 4.73 10^6/uL 4.0-5.4 Hemoglobin 15.5 g/dL 12.0-16.0 Hematocrit 45 % 35-47 Mean Corpuscular Volume 94 fL 80-97 Mean Corpuscular Hemoglobin 33 pg High 27-31 Mean Corpuscular HGB Conc 35 g/dL 31-36 Red Cell Distribution Width 14 % 10.5-15 Platelet Count 135 10^3/uL Low 150-450 Mean Platelet Volume 10.7 um3 High 7.4-10.4 Abs Neutrophils 3.8 10^3/uL 1.5-7.7 Abs Lymphocytes 1.0 10^3/uL 1.0-4.8 Abs Monocytes 0.4 10^3/uL 0-0.8 Abs Eosinophils 0.1 10^3/uL 0-0.6 Abs Basophils 0 10^3/uL 0-0.2 Abs Nucleated RBC 0 10^3/uL Granulocyte % 71.5 % 38-83 Lymphocyte % 18.6 % Low 25-47 Monocyte % 6.6 % 0-7 Eosinophil % 2.7 % 0-6 Basophil % 0.6 % 0-2 Nucleated Red Blood Cells % 0.1 Laboratory test finding 06/02/2017 Erythrocyte Sed Rate 10 mm/Hr 0-40 C Reactive Protein 1.30 mg/L < 5.00 17 Urine Culture And Sensitivities 01/26/2017 Urine Culture SEE RESULT BELOW 18, 19 Urinalysis Profile 01/26/2017 Urine Color Yellow 18 Urine Appearance Cloudy 18 Urine Specific [place] 1.015 1.010-1.030 18 Urine pH 6.0 5-9 18 Urine Urobilinogen Negative Negative 18 Urine Ketones Negative Negative 18 Urine Protein Negative Negative 18 Urine Leukocytes Negative Negative 18 Urine Blood 3+ Negative 18 Urine Nitrite Negative Negative 18 Urine Bilirubin Negative Negative 18 Urine Glucose Negative Negative 18 Urine White Blood Cell Trace(0-5/hpf) Absent 18 Urine Red Blood Cell 3+(>10/hpf) Absent 18 Urine Bacteria 1+ Absent 18 Urine Squamous Epithelial Cell Present Absent 18 Protein Electrophoresis 01/26/2017 Total Protein(Pep) 7.0 g/dL 6.3 - 7.9 18 Albumin 3.6 g/dL 3.4-4.7 18 Alpha-1 Globulin 0.3 g/dL 0.1-0.3 18 Alpha-2 Globulin 1.2 g/dL 0.6-1.0 18 Beta Globulin 1.0 g/dL 0.7-1.2 18 Gamma Globulin 1.0 g/dL 0.6-1.6 18 Albumin/Globulin Ratio 1.07 18 Impression See Comment 18, 20 Laboratory test finding 01/26/2017 Vitamin D Total 25(Oh) 34.1 ng/mL 20- 50 18 Comp Metabolic Panel 01/26/2017 Sodium 136 mmol/L 133-145 18 Potassium 3.9 mmol/L 3.5-5.0 18 Chloride 98 mmol/L Low 101-111 18 Co2 Carbon Dioxide 30 mmol/L 22-32 18 Anion Gap 8 mmol/L 2-11 18 Glucose 100 mg/dL 70-100 18 Blood Urea Nitrogen 22 mg/dL 6-24 18 Creatinine 1.01 mg/dL High 0.51-0.95 18 BUN/Creatinine Ratio 21.8 High 8-20 18 Calcium 9.6 mg/dL 8.6-10.3 18 Total Protein 6.7 g/dL 6.4-8.9 18 Albumin 4.2 g/dL 3.2-5.2 18 Globulin 2.5 g/dL 2-4 18 Albumin/Globulin Ratio 1.7 1-3 18 Total Bilirubin 0.70 mg/dL 0.2-1.0 18 Alkaline Phosphatase 60 U/L 34-104 18 Alt 13 U/L 7-52 18 Ast 15 U/L 13-39 18 Egfr Non- 55.0 >60 18 Egfr 70.7 >60 18, 21 CBC Auto Diff 01/26/2017 White Blood Count 7.8 10^3/uL 3.5-10.8 18 Red Blood Count 5.15 10^6/uL 4.0-5.4 18 Hemoglobin 16.5 g/dL High 12.0-16.0 18 Hematocrit 48 % High 35-47 18 Mean Corpuscular Volume 94 fL 80-97 18 Mean Corpuscular Hemoglobin 32 pg High 27-31 18 Mean Corpuscular HGB Conc 34 g/dL 31-36 18 Red Cell Distribution Width 14 % 10.5-15 18 Platelet Count 163 10^3/uL 150-450 18 Mean Platelet Volume 10 um3 7.4-10.4 18 Abs Neutrophils 6.3 10^3/uL 1.5-7.7 18 Abs Lymphocytes 0.9 10^3/uL Low 1.0-4.8 18 Abs Monocytes 0.4 10^3/uL 0-0.8 18 Abs Eosinophils 0.2 10^3/uL 0-0.6 18 Abs Basophils 0 10^3/uL 0-0.2 18 Abs Nucleated RBC 0.01 10^3/uL 18 Granulocyte % 80.4 % 38-83 18 Lymphocyte % 11.3 % Low 25-47 18 Monocyte % 5.7 % 1-9 18 Eosinophil % 2.1 % 0-6 18 Basophil % 0.5 % 0-2 18 Nucleated Red Blood Cells % 0.1 18 Laboratory test finding 01/26/2017 Erythrocyte Sed Rate 10 mm/Hr 0-40 18 Rheumatoid Factor <15 IU/mL <15 18, 22 Cyclic Citrullinated Pep Igg 58.1 U 18, 23 C Reactive Protein 1.06 mg/L < 5.00 18, 24 Drug Abuse 20 Urine 11/29/2016 Urine Amphetamine Negative ng/mL 25 Urine Barbiturates Negative ng/mL 26 Urine Benzodiazepines Negative ng/mL 27 Urine Cocaine Negative ng/mL 28 Urine Phencyclidine Negative ng/mL Cutoff: 25 Urine Tetrahydrocannabinol Negative ng/mL Cutoff: 50 29 Creatinine, Urine 37.4 mg/dL Specific [place] 1.009 pH 7.4 Oxidants Negative 30 Adulterants Comment Normal Codeine, Ur Not Detected ng/mL Cutoff: 25 31 Dqwtque-2-fblx-glucuronide, Ur Not Detected ng/mL 32 Morphine, Ur Not Detected ng/mL Cutoff: 25 33 Vabswayg-7-vunm-glucuronide, U Not Detected ng/mL 34 6-monoacetylmorphine, Ur Not Detected ng/mL Cutoff: 25 35 Hydrocodone, Ur Present ng/mL Cutoff: 25 36 Norhydrocodone, Ur Present ng/mL Cutoff: 25 37 Dihydrocodeine, Ur Present ng/mL Cutoff: 25 38 Hydromorphone, Ur Not Detected ng/mL Cutoff: 25 39 Bkrodmcwnzyat9rdrrphlwqzdcvzf Not Detected ng/mL 40 Oxycodone, Ur Not Detected ng/mL Cutoff: 25 41 Noroxycodone, Ur Not Detected ng/mL Cutoff: 25 42 Oxymorphone, Ur Not Detected ng/mL Cutoff: 25 43 Dwukuytivda-6-rvlk-glucuronide Not Detected ng/mL 44 Noroxymorphone, Ur Not Detected ng/mL Cutoff: 25 45 Fentanyl, Ur Not Detected ng/mL Cutoff: 2 46 Norfentanyl, Ur Not Detected ng/mL Cutoff: 2 47 Meperidine, Ur Not Detected ng/mL Cutoff: 25 48 Normeperidine, Ur Not Detected ng/mL Cutoff: 25 49 Naloxone, Ur Not Detected ng/mL Cutoff: 25 50 Okprcyuk-1-ddhl-glucuronide, U Not Detected ng/mL 51 Methadone, Ur Not Detected ng/mL Cutoff: 25 52 Eddp, Ur Not Detected ng/mL Cutoff: 25 53 Propoxyphene, Ur Not Detected ng/mL Cutoff: 25 54 Norpropoxyphene, Ur Not Detected ng/mL Cutoff: 25 55 Tramadol, Ur Not Detected ng/mL Cutoff: 25 56 O-desmethyltramadol, Ur Not Detected ng/mL Cutoff: 25 57 Tapentadol, Ur Not Detected ng/mL Cutoff: 25 58 N-desmethyltapentadol, Ur Not Detected ng/mL Cutoff: 50 59 Xqrxixyibk-gqhq-jobkozdcwkz, U Not Detected ng/mL 60 Buprenorphine, Ur Not Detected ng/mL Cutoff: 5 61 Norbuprenorphine, Ur Not Detected ng/mL Cutoff: 5 62 Norbuprenorphine glucuronide Not Detected ng/mL Cutoff: 20 63 Opioid Interpretation See Comment 64 1 Result in log IU/mL is Undetected. ADDITIONAL INFORMATION The quantification range of this assay is 15 to 100,000,000 IU/mL (1.18 log to 8.00 log IU/mL). Testing was performed using the og HCV test ([employer] with the og [employer] System. Test Performed by: [facility] [address] [place] [address] 2 Please check labs 2 days before visit 3 Please check labs 2 days before visit FASTING 4 Because ethnic data is not always readily available, this report includes an eGFR for both -Americans and non- Americans. The National Kidney Disease Education Program (NKDEP) does not endorse the use of the MDRD equation for patients that are not between the ages of 18 and 70, are , have extremes of body size, muscle mass, or nutritional status, or are non- or non-. According to the National Kidney Foundation, irrespective of diagnosis, the stage of the disease is based on the level of kidney function: Stage Description GFR(mL/min/1.73 m(2)) 1 Kidney damage with normal or decreased GFR 90 2 Kidney damage with mild decrease in GFR 60-89 3 Moderate decrease in GFR 30-59 4 Severe decrease in GFR 15-29 5 Kidney failure <15 (or dialysis) 5 Desirable: <150 Borderline High: 150-199 High: 200-499 Very High: >500 6 Desirable: <200 Borderline High: 200-239 High: >239 7 Low: <40 Desirable: 40-60 High: >60 8 Desirable: <100 Near Optimal: 100-129 Borderline High: 130-159 High: 160-189 Very High: >189 9 High reactive sample are considered positive for Hepatitis C 10 SEE RESULT BELOW Name: CLIFTONTHUANNARDA : [address]: Quinn Spencer MD Acct: [id number] Unit: [id number] AGE: 67 Location: LAB Re10/08/17 SEX: F Status: REG REF SPEC: [id number] ELIZABETH: 10/08/[address]: Quinn Spencer MD REQ: [id number] RECD: 10/08/17 STATUS: COMP _ SOURCE: URINE SPDESC: ORDERED: Urine Culture Procedure Result Reported Site Urine Culture Final 10/10/17- 814 ML Organism 1 KLEBSIELLA PNEUMONIAE [place] Count >100,000 (Many) CFU/ML 1. KLEBSIELLA PNEUMONIAE [facility] RX --------- ------ Ampicillin R Cefazolin <=4 S Cefepime <=1 S Ceftriaxone <=1 S Ciprofloxacin <=0.25 S Gentamicin <=1 S Levofloxacin <=0.12 S Meropenem <=0.25 S Nitrofurantoin <=16 S Tetracycline <=1 S Pipercillin/Tazobactam <=4 S Trimethoprim/Sulfamethoxazole <=20 S Amoxicillin/Clavulanic Acid 8 S Aztreonam <=1 S Contact the Microbiology Department for any additional antibiotic reporting. * ML - Main Lab . END OF REPORT DEPARTMENT OF PATHOLOGY, [address] [place] [address] Parrish Green M.D. Director [facility] # [id number] 12 SEE RESULT BELOW Name: NARDA LAZO : [address]: Quinn Spencer MD Acct: [id number] Unit: [id number] AGE: 67 Location: [facility] Re08/09/17 SEX: F Status: REG REF SPEC: [id number] ELIZABETH: 08/09/17-[address]: Quinn Spencer MD REQ: [id number] RECD: 08/09/17086 STATUS: COMP _ SOURCE: URINE SPDESC: ORDERED: Urine Culture COMMENTS: [id number] QUERIES: Urine Source: Random Procedure Result Reported Site Urine Culture Final 08/11/17- 0747 ML Organism 1 PROTEUS MIRABILIS [place] Count >100,000 (Many) CFU/ML 1. PROTEUS MIRABILIS [facility]. RX --------- ------ Ampicillin <=2 S Cefazolin <=4 S Cefepime <=1 S Ceftriaxone <=1 S Ciprofloxacin <=0.25 S Gentamicin <=1 S Levofloxacin <=0.12 S Meropenem 4 S Nitrofurantoin 256 R Tetracycline >=16 R Pipercillin/Tazobactam <=4 S Trimethoprim/Sulfamethoxazole <=20 S Amoxicillin/Clavulanic Acid 4 S Aztreonam <=1 S Contact the Microbiology Department for any additional antibiotic reporting. * ML - Main Lab . END OF REPORT DEPARTMENT OF PATHOLOGY, [address] [place] [address] Parrish Green M.D. Director [facility] # [id number] 13 Because ethnic data is not always readily available, this report includes an eGFR for both -Americans and non- Americans. The National Kidney Disease Education Program (NKDEP) does not endorse the use of the MDRD equation for patients that are not between the ages of 18 and 70, are , have extremes of body size, muscle mass, or nutritional status, or are non- or non-. According to the National Kidney Foundation, irrespective of diagnosis, the stage of the disease is based on the level of kidney function: Stage Description GFR(mL/min/1.73 m(2)) 1 Kidney damage with normal or decreased GFR 90 2 Kidney damage with mild decrease in GFR 60-89 3 Moderate decrease in GFR 30-59 4 Severe decrease in GFR 15-29 5 Kidney failure <15 (or dialysis) 14 Low risk: <1.00 Average risk: 1.00-3.00 High risk: >3.00 15 ADDITIONAL INFORMATION This test was developed and its performance characteristics determined by [facility] in a manner consistent with CLIA requirements. This test has not been cleared or approved by the U.S. Food and Drug Administration. Test Performed by: [facility] [address] [place] [address] 16 Because ethnic data is not always readily available, this report includes an eGFR for both -Americans and non- Americans. The National Kidney Disease Education Program (NKDEP) does not endorse the use of the MDRD equation for patients that are not between the ages of 18 and 70, are , have extremes of body size, muscle mass, or nutritional status, or are non- or non-. According to the National Kidney Foundation, irrespective of diagnosis, the stage of the disease is based on the level of kidney function: Stage Description GFR(mL/min/1.73 m(2)) 1 Kidney damage with normal or decreased GFR 90 2 Kidney damage with mild decrease in GFR 60-89 3 Moderate decrease in GFR 30-59 4 Severe decrease in GFR 15-29 5 Kidney failure <15 (or dialysis) 17 Acute inflammation: >10.00 18 [id number] 19 SEE RESULT BELOW Name: NARDA LAZO : [address]: Aubrey Rodriguez MD Acct: [id number] Unit: [id number] AGE: 66 Location: LAB Re01/27/17 SEX: F Status: REG REF SPEC: [id number] ELIZABETH: 01/27/17-[address]: Aubrey Rodriguez MD REQ: [id number] RECD: 01/27/171 STATUS: COMP _ SOURCE: URINE SPDESC: ORDERED: Urine Culture Urine Source: Clean Catch Procedure Result Reported Site Urine Culture Final 01/29/17- 820 ML Organism 1 ESCHERICHIA COLI [place] Count >100,000 (Many) CFU/ML 1. ESCHERICHIA COLI M.I.C. RX --------- ------ Ampicillin 4 S Cefazolin <=4 S Cefepime <=1 S Ceftriaxone <=1 S Ciprofloxacin <=0.25 S Gentamicin <=1 S Levofloxacin <=0.12 S Meropenem <=0.25 S Nitrofurantoin <=16 S Tetracycline <=1 S Pipercillin/Tazobactam <=4 S Trimethoprim/Sulfamethoxazole <=20 S Amoxicillin/Clavulanic Acid <=2 S Aztreonam <=1 S Contact the Microbiology Department for any additional antibiotic reporting. * ML - MAIN LAB ([facility]) . END OF REPORT * ML=Testing performed at Main Lab DEPARTMENT OF PATHOLOGY, [address] [place] [address] Parrish Green M.D. Director [facility] # [id number] 20 RESULT: No apparent monoclonal protein on serum electrophoresis. Test Performed by: [place] [address] 21 Because ethnic data is not always readily available, this report includes an eGFR for both -Americans and non- Americans. The National Kidney Disease Education Program (NKDEP) does not endorse the use of the MDRD equation for patients that are not between the ages of 18 and 70, are , have extremes of body size, muscle mass, or nutritional status, or are non- or non-. According to the National Kidney Foundation, irrespective of diagnosis, the stage of the disease is based on the level of kidney function: Stage Description GFR(mL/min/1.73 m(2)) 1 Kidney damage with normal or decreased GFR 90 2 Kidney damage with mild decrease in GFR 60-89 3 Moderate decrease in GFR 30-59 4 Severe decrease in GFR 15-29 5 Kidney failure <15 (or dialysis) 22 Test Performed by: [address] [address] 23 Interpretation: Positive (40.0-59.9) REFERENCE VALUE <20.0 (Negative) Test Performed by: [facility] [address] [place] [address] 24 Acute inflammation: >10.00 25 REFERENCE VALUE Cutoff: 500 26 REFERENCE VALUE Cutoff: 200 27 REFERENCE VALUE Cutoff: 100 28 REFERENCE VALUE Cutoff: 150 29 ADDITIONAL INFORMATION This report is intended for use in clinical monitoring or management of patients. It is not intended for use in employment-related testing. 30 REFERENCE VALUE Cutoff: 200 mg/L 31 Tylenol 3 32 Metabolite of codeine REFERENCE VALUE Cutoff: 100 33 Aaliyah Christina, Contin; Also a minor metabolite (10%) of codeine and can be seen in low concentrations (<2,000 ng/mL) with poppy seed ingestion. 34 Metabolite of morphine REFERENCE VALUE Cutoff: 100 35 Metabolite of heroin 36 Lortab, [place], Vicodin; Also a very minor metabolite of codeine and impurity (<1%) of oxycodone. 37 Metabolite of hydrocodone 38 Metabolite of hydrocodone 39 Dilaudid, Exalgo; Also a metabolite of hydrocodone and a minor (<5%) metabolite of morphine. 40 Metabolite of hydromorphone REFERENCE VALUE Cutoff: 100 41 Endocet, Percocet, Oxycontin 42 Metabolite of oxycodone 43 Numorphan, Opana; Also a metabolite of oxycodone. 44 Metabolite of oxymorphone REFERENCE VALUE Cutoff: 100 45 Metabolite of oxymorphone 46 Actiq, Duragesic, Fentora 47 Metabolite of fentanyl 48 Demerol 49 Metabolite of meperidine 50 Narcan 51 Metabolite of naloxone REFERENCE VALUE Cutoff: 100 52 Dolophine 53 Metabolite of methadone 54 Darvon, Darvocet 55 Metabolite of propoxyphene 56 Tradol, Ultram, Ultracet 57 Metabolite of tramadol 58 Nucynta 59 Metabolite of tapentadol 60 Metabolite of tapentadol REFERENCE VALUE Cutoff: 100 61 Buprenex, Suboxone 62 Metabolite of buprenorphine 63 Metabolite of buprenorphine 64 Test detected the presence of hydrocodone and its metabolites (norhydrocodone and dihydrocodeine). Suspect use of hydrocodone within the past three days. ADDITIONAL INFORMATION This test was developed and its performance characteristics determined by [facility] in a manner consistent with CLIA requirements. This test has not been cleared or approved by the U.S. Food and Drug Administration. Test Performed by: [facility] [address] [place] [address] Procedures Date CPT Code Description Status 04/14/2017 57162 Open TX Proximal Humeral FX Incl Fixation When Completed Performed 04/14/2017 17042 Open TX Proximal Humeral FX Incl Fixation When Completed Performed 02/16/2017 Bone Mineral Density Test Completed 02/16/2017 Mammogram Completed 02/29/2012 Colonoscopy Completed Encounters Type Date Location Provider CPT E/M Dx Office Visit 11/07/2017 Rhe[facility]ology Services Aubrey Rodriguez M.D. 29114 M05.79 10:00a Of Hina Z79.899 M85.89 M79.1 Office Visit 08/09/2017 10:00a [facility] Internal Medicine Quinn Spencer M.D. [address] J44.9 E03.9 N39.0 R87.615 F41.9 Office Visit 08/05/2017 11:40a [facility] Services Aubrey Rodriguez 52273 M05.79 Of [place]ina Velez79.899 M85.89 R31.9 Office Visit 05/26/2017 11:00a [facility] Services Aubrey Rodriguez 94968 M05.79 Of Hina Ly Z79.899 M85.89 S42.212A Office Visit 05/03/2017 10:00a [facility] Internal Quinn Spencer [address]1231 S42.202D Medicine - [address] Malachi F41.9 Office Visit 04/12/2017 2:00p [facility] Of [place] Reis, 10309 S42.202A Nicole MCINTYRE Office Visit 02/25/2017 10:40a [facility] Services Aubrey Rodriguez 85905 M05.79 Of [facility] Malachi Z79.899 M85.89 L97.508 Z23 F17.210 Office Visit 02/24/2017 10:00a [facility] Internal Quinn Spencer M.D. 01770 F41.9 Medicine - [address] G89.29 Office Visit 01/26/2017 11:00a [facility]ology Services Aubrey Rodriguez 77988 M05.79 Of [facility] Malachi Z79.899 M81.0 M54.5 R31.9 F17.210 Office Visit 01/06/2017 9:40a [facility] Internal Quinn Spencer, 55040 G89.29 Medicine - [address] Malachi F41.9 Office Visit 12/17/2016 11:00a [facility] Internal Quinn Spencer, 96935 G89.29 Medicine - [address] Malachi Z12.31 M81.0 F17.210 Z72.0 Office Visit 11/29/2016 3:20p [facility] Internal Medicine Quinn Spencer M.D. [address]43 [address] M05.10 F41.9 G89.29 J44.9 Z23 Plan of Care Future Appointment(s):02/07/2018 10:00 am - Aubrey Rodriguez M.D. at [facility]11/15/2017 10:20 am - Quinn Spencer M.D. 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
--- OUTSIDE RECORDS SUMMARY | 2017-11-24 08:20 | XMS REPORT ---
:1950 External Reference #:[id number] Author Organization [facility] [employer] Address [address] [place] [address] [place] [address] Phone [phone] Care Team Providers Name Role Phone Quinn Spencer MD Primary Care Physician Unavailable Payers Type Date Identification Numbers Payment Provider Subscriber Medicare Primary Policy Number: [id number] Medicare Narda Lazo PayID: [id number] [facility] [address] [place] [address] Commercial Effective: 2016 Policy Number: [facility] Narda Lazo [id number] Expires: 2018 Group Number: [id number] PayID: [id number] [address] Problems Date Description Provider Status Onset: 11/29/2016 Rheumatoid lung disease Quinn Spencer M.D. Active Onset: 11/29/2016 Anxiety state Quinn Spencer M.D. Active Onset: 11/29/2016 Chronic pain Quinn Spencer M.D. Active Onset: 11/29/2016 Chronic obstructive lung disease Quinn Spencer M.D. Active Onset: 04/12/2017 Closed fracture of upper end of Gabino Reis MD Active humerus Onset: 11/15/2017 Mild recurrent major depression Quinn Spencer M.D. Active Onset: 08/09/2017 Hypothyroidism Quinn Spencer M.D. Active [...] Form Strength Qnty SIG Indications Ordering Provider Aspercreme 06/15/19 Active Patches 4% 30units apply Aubrey Lidocaine Max 18 once Michael, Strength daily as M.D. needed for pain in the feet Synthroid 01/12/20 Active Tablets 112mcg 90tabs Take One [place] 17 Tablet [place], Once M.D. Daily Hydrocodone-Ac 12/18/19 Active Tablets 10-325mg 90tabs 1 tab by G89.29 Aubrey etaminophen 17 mouth Michael, every 8 M.D. hours as needed, pain do not fill before 06/05 M05.79 Calcium 600 + D 11/29/2016 Active Tablets 115-922ee-Deme 1 by mouth Quinn twice a day Malachi Spencer Celecoxib 11/29/2016 Active Capsules 200mg 9 1 by mouth [place] 0 every day caleb Spencer M.D. a p s Genteal 11/29/2016 Active Gel 0.25-0.3% [place] Malachi Spencer Lisinopril 11/29/2016 Active Tablets 5mg 9 1 by mouth [place] 0 every day Tj t Mlaachi a b s Nitroglycerin 11/29/2016 Active Tablets 0.4mg 2 1 sl q5mins x3 [place] Sub 5 as needed for Pachgilberto t chest pain Tony.Fredo a b s Pennsaid 11/29/2016 Active Solution 2% 2 apply 4 drops [place] 2 twice daily to [place], 4 the finger for M.D. g pain m Polyethylene 11/29/2016 Active Powder 5 mix 17gm with [place] Glycol 3350 0 8 ounces of [place], 0 fluids once M.D. g daily m Proctozone-HC 11/29/2016 Active Cream 2.5% 3 topical for Quinn 0 hemorrhoids [place], g twice a day as M.D. m needed Methotrexate 11/29/2016 Active Tablets 2.5mg 2 Take 2 Tablets Aubrey 4 By Mouth Every Michael, t Week M.D. a b s Folic Acid 11/29/2016 Active Tablets 1mg 9 Take One [place] 0 Tablet Once Tj t Daily M.D. a b s Fovdj-8-Lsli 11/29/2016 Active Capsules 1gm 6 Take One [place] Ethyl Esters 0 Capsule By Tj c Mouth Twice A M.D. a Day p s Alprazolam Active Tablets 1mg 4 take 1/2 [place] 5 tablet by Tj t mouth in the M.D. a morning and b one tablet at s bedtime as needed Cyclobenzaprine Active Tablets 10mg 3 1 tablet by Aubrey HCL 0 mouth at Michael, bedtime as M.D. a needed, muscle b spasms s Sulfamethoxazole 10/10/2017 Hx Tablets 800-160mg 1 by mouth twice Piyush RadhaAftab /Trimethoprim DS - 4 a day Fredo Shaw, 11/14/2017 t Malachi,FACP a b s Ciprofloxacin 08/11/2017 Hx Tablets 500mg 1 twice a day Quinn [facility], 08/18/2017 t Malachi a b s Lidoderm 05/30/2017 Hx Patches 5% 3 1 apply to Aubrey - 0 affected area [facility], 06/14/2017 u 12 hours on, M.D. n 12 hours off i t s Oxycodone-Acetam 04/18/2017 Hx Tablets 5-325mg 1 1 tab by mouth Ruben Lloyd inophen - 5 every 8 hours 8 MD Chato 06/03/2017 t for 9 a postoperative . b pain 2 s 9 Ciprofloxacin 01/28/2017 Hx Tablets 250mg 1 take one Aubrey HCL - 4 capsule/tablet Michael, 02/25/2017 t by mouth twice M.D. a daily b s Ipratropium 11/29/2016 Hx Solution 0.5-2.5(3)mg/3M 1 vial in Quinn [place]/Albutero - L nebulizer jaime Spencer Sulfate 08/05/2017 three times a M.D. day as needed for asthma Levothyroxine 11/29/2016 Hx Tablets 112mcg 9 1 by mouth Quinn Sodium - 0 every day [facility], 01/11/2017 t M.D. a b s Lidoderm 11/29/2016 Hx Patches 5% 3 1 apply to [place] - 0 [facility], 02/[facility]2017 u 12 hours on, M.D. n 12 hours off i t s Metaxalone 11/29/2016 Hx Tablets 800mg 3 take 1 tablet [place] - 0 3 times a day [facility], 08/09/2017 t as needed (not M.D. a taking) b s Ventolin HFA 11/29/2016 Hx Aerosol 108(90Base) 1 2 puffs by [place] - mcg/Act u mouth four , 02/24/2017 n times a day as M.D. i needed t s Hydrocodone-Acet 11/29/2016 Hx Tablets 5-325mg 4 1 tab every 8h M Quinn aminophen - 5 as needed 0 , 12/17/2016 t 5 M.D. a . b [...] Code Status Date Vaccine Reaction Lot # [id number] Given 11/15/2017 Influenza Virus Vaccine, no immediate [id number] Quadrivalent, Split, reaction.cm Preservative Free 40469 Given 02/25/2017 Pneumococcal Conjugate no immediate reaction [id number] Vaccine 13 Valent For noted Intramuscular Use 38358 Given 11/29/2016 Influenza Virus Vaccine, no immediate reaction, [id number] Quadrivalent, Split, pt tolerated well Preservative Free Vital Signs Date Vital Result Comment 11/15/2017 Height 68.25 inches 5'8.25" Weight 167.38 lb Heart Rate 76 /min BP Systolic Sitting 124 mmHg reg adult cuff right arm BP Diastolic Sitting 78 mmHg reg adult cuff right arm O2 % BldC Oximetry 97 % at rest on room air BMI (Body Mass Index) 25.3 kg/m2 11/07/2017 Height 68.25 inches 5'8.25" Weight 156.00 [...] BELOW Ua Routine 08/09/2017 Ua Specific 1.015 [place] Ua PH 7 Ua Color YELLOW Ua [...] 18 Urine Appearance Cloudy 18 Urine Specific [place] 1.015 1.010-1.030 18 Urine pH 6.0 5-9 [...] 50 29 Creatinine, Urine 37.4 mg/dL Specific [place] 1.009 pH 7.4 Oxidants Negative 30 Adulterants Comment Normal Codeine, Ur Not Detected ng/mL Cutoff: 25 31 Nqninyt-2-leko-glucuronide, Ur Not Detected ng/mL 32 Morphine, Ur Not Detected ng/mL Cutoff: 25 33 Gvniodso-0-rddq-glucuronide, U Not Detected ng/mL 34 6-monoacetylmorphine, Ur Not Detected ng/mL Cutoff: 25 35 Hydrocodone, Ur Present ng/mL Cutoff: 25 36 Norhydrocodone, Ur Present ng/mL Cutoff: 25 37 Dihydrocodeine, Ur Present ng/mL Cutoff: 25 38 Hydromorphone, Ur Not Detected ng/mL Cutoff: 25 39 Uddmmjxgmyvqd2wfhuwojaqzygbpu Not Detected ng/mL 40 Oxycodone, Ur Not Detected ng/mL Cutoff: 25 41 Noroxycodone, Ur Not Detected ng/mL Cutoff: 25 42 Oxymorphone, Ur Not Detected ng/mL Cutoff: 25 43 Dwkwlznxoek-5-nfiv-glucuronide Not Detected ng/mL 44 Noroxymorphone, Ur Not Detected ng/mL Cutoff: 25 45 Fentanyl, Ur Not Detected ng/mL Cutoff: 2 46 Norfentanyl, Ur Not Detected ng/mL Cutoff: 2 47 Meperidine, Ur Not Detected ng/mL Cutoff: 25 48 Normeperidine, Ur Not Detected ng/mL Cutoff: 25 49 Naloxone, Ur Not Detected ng/mL Cutoff: 25 50 Stxpmnwd-7-hemb-glucuronide, U Not Detected ng/mL 51 Methadone, Ur [...] Ur Not Detected ng/mL Cutoff: 50 59 Rwbxmmzjjn-cevv-paiqletshrl, U Not Detected ng/mL 60 Buprenorphine, Ur [...] was performed using the og HCV test ([employer] with the og Anokion SA0 System. Test Performed by: [facility] [address] [place] [address] 2 Please check labs 2 days before [...] Hepatitis C 10 SEE RESULT BELOW Name: NARDA LAZO : [address]: Quinn Spencer MD Acct: [id number] Unit: [id number] AGE: 67 Location: LAB Re10/08/17 SEX: F Status: REG REF SPEC: [id number] ELIZABETH: 10/08/[address]: Quinn Spencer MD REQ: [id number] RECD: 10/08/17 STATUS: COMP _ SOURCE: URINE SPDESC: ORDERED: Urine Culture Procedure Result Reported Site Urine Culture Final 10/10/17- 0815 ML Organism 1 KLEBSIELLA PNEUMONIAE [place] Count >100,000 (Many) CFU/ML 1. KLEBSIELLA PNEUMONIAE [...] . END OF REPORT DEPARTMENT OF PATHOLOGY, [address] [place] [address] Parrish Green M.D. Director [facility] # [id number] 11 [id number] 12 SEE RESULT BELOW Name: NARDA LAZO : [address]: Quinn Spencer MD Acct: [id number] Unit: [id number] AGE: 67 Location: [facility] Re08/09/17 SEX: F Status: REG REF SPEC: [id number] ELIZABETH: 08/09/17-[address]: Quinn Spencer MD REQ: [id number] RECD: 08/09/17 STATUS: COMP _ SOURCE: URINE SPDESC: ORDERED: Urine Culture COMMENTS: [id number] QUERIES: Urine Source: Random Procedure Result Reported Site Urine Culture Final 08/11/17- 0747 ML Organism 1 PROTEUS MIRABILIS [place] Count >100,000 (Many) CFU/ML 1. PROTEUS MIRABILIS [...] Department for any additional antibiotic reporting. * - [facility] Lab . END OF REPORT DEPARTMENT OF PATHOLOGY, [address] [place] [address] Parrish Green M.D. Director [facility] # [id number] 13 Because ethnic data is not always [...] developed and its performance characteristics determined by [facility] in a manner consistent with CLIA requirements. This test has not been cleared or approved by the U.S. Food and Drug Administration. Test Performed by: [facility] - [address] [address] 16 Because ethnic data is not always [...] (or dialysis) 17 Acute inflammation: >10.00 18 [id number] 19 SEE RESULT BELOW Name: NARDA LAZO : [address]: Aubrey Rodriguez MD Acct: [id number] Unit: [id number] AGE: 66 Location: LAB Re01/27/17 SEX: F Status: REG REF SPEC: [id number] ELIZABETH: 01/27/17-[address] [facility] [address]: Aubrey Rodriguez MD REQ: [id number] RECD: 01/27/17-1221 STATUS: COMP _ SOURCE: URINE SPDESC: ORDERED: Urine Culture Urine Source: Clean Catch Procedure Result Reported Site Urine Culture Final 01/29/17- 21 ML Organism 1 ESCHERICHIA COLI [place] Count >100,000 (Many) CFU/ML 1. ESCHERICHIA COLI [...] antibiotic reporting. * ML - MAIN LAB ([facility]) . END OF REPORT * ML=Testing performed at Main Lab DEPARTMENT OF PATHOLOGY, [address] [place] [address] Parrish Green M.D. Director [facility] # [id number] 20 RESULT: No apparent monoclonal protein on serum electrophoresis. Test Performed by: [address] [address] 21 Because ethnic data is not always [...] <15 (or dialysis) 22 Test Performed by: [place] [address] 23 Interpretation: Positive (40.0-59.9) REFERENCE VALUE <20.0 (Negative) Test Performed by: [place] [id number] 24 Acute inflammation: >10.00 25 REFERENCE VALUE [...] 100 35 Metabolite of heroin 36 Lortab, [place], Vicodin; Also a very minor metabolite of [...] developed and its performance characteristics determined by [facility] in a manner consistent with CLIA requirements. This test has not been cleared or approved by the U.S. Food and Drug Administration. Test Performed by: [facility] - [address] [address] Procedures Date CPT Code Description Status 04/14/2017 10615 Open TX Proximal Humeral FX Incl Fixation When Completed Performed 04/14/2017 73319 Open TX Proximal Humeral FX Incl Fixation When Completed Performed 02/16/2017 Bone Mineral Density Test Completed 02/16/2017 Mammogram Completed 02/29/2012 Colonoscopy Completed Encounters Type Date Location Provider CPT E/M Dx Office Visit 08/09/2017 10:00a [facility] Internal Medicine Quinn Spencer, [address] [address] Ly J44.9 E03.9 N39.0 R87.615 F41.9 Office Visit 08/05/2017 11:40a Rheumatology Services Aubrey Rodriguez, 43801 M05.79 Of Hina Ly Z79.899 M85.89 R31.9 Office Visit 05/26/2017 11:00a Rheumatology Services Aubrey Rodriguez 07100 M05.79 Of Hina Ly Z79.899 M85.89 S42.212A Office Visit 05/03/2017 10:00a [facility] Internal Quinn Spencer, [address]85 S42.202D Medicine - [address] Malachi F41.9 Office Visit 04/12/2017 2:00p [facility] [place] Re[place], [address]4033 S42.202A Nicole MCINTYRE Office Visit 02/25/2017 10:40a Rheumatology Services Aubrey Rodriguez 52727 M05.79 Of [facility] Malachi Z79.899 M85.89 L97.508 Z23 F17.210 Office Visit 02/24/2017 10:00a [facility] Internal Quinn Spencer M.D. 98583 F41.9 Medicine - [address] G89.29 Office Visit 01/26/2017 11:00a Rheumatology Services Aubrey Rodriguez [address]3423 M05.79 Of Hina Ly Z79.899 M81.0 M54.5 R31.9 F17.210 Office Visit 01/06/2017 9:40a [facility] Internal Quinn Spencer [address]1936 G89.29 Medicine - [address] Malachi F41.9 Office Visit 12/17/2016 11:00a [facility] Internal Quinn Spencer [address]674 G89.29 Medicine - [address] Malachi Z12.31 M81.0 F17.210 Z72.0 Office Visit 11/29/2016 3:20p [facility] Internal Medicine Quinn Spencer M.D. [address]132 [address] - [address] M05.10 F41.9 G89.29 J44.9 Z23 Plan of Care Future Appointment(s):02/14/2018 10:00 am - Quinn Spencer M.D. at [facility] Internal Medicine - [address]02/07/2018 10:00 am - Aubrey Rodriguez M.D. at [facility]11/15/2017 - Quinn Spencer M.D.Z00.01 Encounter for general adult medical exam w abnormal findingsComments:Depression screen: PHQ 17ADL screen: negativeAdvance directives: MOLST form given to patient will bring back after completingHCP: Given to patient will bring back after completingCognitive impairment screen: Clock test normal ,Recollected 3/ 3Suggested flu shot yearly and T dap every 10yrsShingle vaccination after the age of 60Exercise 30mts/day 5 times a week, Use sun screen, to prevent skin cancer discussed.Discussed self breast exam once a month to feel for lumps or bumpsReviewed medication list/Updated/No changesImmunizations/Injections: Influenza Virus 3Yrs & OverZ23 Encounter for immunization
--- NOTE | 2017-11-24 09:33 | RAD ---
Indication: Pain and decreased pulses. LEFT lower extremity rest pain. Current tobacco use. Comparison: No relevant prior exams available on the [facility] PACS for comparison. Technique: Ankle and brachial blood pressure measurement. Calculated ankle-brachial indices. REPORT: The right ankle brachial index is 0.99 at the lower limits of normal. Triphasic posterior tibial and dorsalis pedis waveforms. Loss of significant reflected waves at the ankle pulse volume recording. The left ankle brachial index is 0.71 in claudication range. Biphasic posterior tibial and dorsalis pedis waveforms. Loss of reflected waves at the ankle pulse volume recording. IMPRESSION: #. Lower normal RIGHT and abnormal claudication range LEFT ankle brachial indices.
[2017-11-24 10:43] VITALS: BP 156/109
== END 2017-11-24 10:42 | disposition home or self-care (01) ==
LOC: ED 07:49
DX: I73.9 Peripheral vascular disease, unspecified (principal); M06.9 Rheumatoid arthritis, unspecified; F17.200 Nicotine dependence, unspecified, uncomplicated; Z79.899 Other long term (current) drug therapy; Z88.8 Allergy status to other drugs, medicaments and biological substances; Z88.3 Allergy status to other anti-infective agents
CPT/HCPCS: 93922; 99282